=== PATIENT | female | born 1950 | race Caucasian/White ===

== ENCOUNTER 2016-05-04 12:48 | Emergency (ER) | payer MEDICARE, MEDICAID ==
--- NOTE | 2016-05-13 17:33 | ER ---
ADMIT: 05/04/2016 RM/LOC: ER [facility] MR#: [id number] 2620 [facility] [address] [place] [phone] KELSEY TOLEDO [address] [facility] [place], [place] [id number] Emergency Room Report SEX: F AGE: 66 : 1950 DATE: 05/04/2016 A 66-year-old female, comes down from [place] with complaints of worsening chronic back pain. She has pain all over. Of note, she quickly and incessantly demanded that something be given to her for pain immediately. See T-sheet for remainder of history and physical. Pertinent lab was a BUN of 76, sodium of 126, and white count of 12. I did discuss at length with them the need to follow up for these abnormal lab values. Her discharge diagnosis being uremia and exacerbation of chronic pain. She is given a prescription for [place] #18. Again, it was emphasized that was not the answer, that she needed further evaluation and workup for chronic pain and her abnormal electrolytes. Aj Yin MD/ tyron JOB #: [id number] CC: Maged Medina MD, Attending Physician Clement Toledo MD, Family Physician
[2016-05-18] MEDS ORDERED: NEURONTIN DPS300 MG PO (14:25)
[2016-05-18] MEDS ORDERED: MIRALAX PACKET17 GM PO (14:25)
[2016-05-18] MEDS ORDERED: CYMBALTA60 MG PO (14:25)
[2016-05-18] MEDS ORDERED: NEURONTIN DPS600 MG PO (14:25)
[2016-05-18] MEDS ORDERED: MS CONTIN DPS15 MG PO (14:25)
[2016-05-18] MEDS ORDERED: CATAPRES-DPS0.1 MG PO (14:26)
[2016-05-18] MEDS ORDERED: DUONEB DPS3 ML IH (14:26)
[2016-05-18] MEDS ORDERED: PROTONIX40 MG PO (14:26)
[2016-05-18] MEDS ORDERED: DULCOLAX-DPS10 MG PR (14:26)
[2016-05-18] MEDS ORDERED: DULERA 200/58.8 GM IH (14:26)
[2016-05-18] MEDS ORDERED: TYLENOL DPS325 MG PO (14:27)
[2016-05-18] MEDS ORDERED: MAALOX DPS30 ML PO (14:27)
[2016-05-18] MEDS ORDERED: SURFAK DPS240 MG PO (14:27)
[2016-05-18] MEDS ORDERED: HYDROCODON-ACE1 EAC6 PO (14:27)
[2016-05-18] MEDS ORDERED: SLOW-MAG64 MG PO (14:28)
[2016-08-27] MEDS ORDERED: SLOW-MAG71.5 MG PO (11:49)
[2016-08-27] MEDS ORDERED: BREO ELLIP1 PUFF/DOS IH (11:52)
[2016-08-27] MEDS ORDERED: ASPIRIN EC81 MG PO (11:53)
[2016-08-27] MEDS ORDERED: XANAX DPS0.25 MG PO (11:53)
[2016-08-27] MEDS ORDERED: DELTASONE DPS20 MG PO (11:55)
[2016-08-27] MEDS ORDERED: CARDIZEM CD180 MG PO (11:56)
[2016-08-27] MEDS ORDERED: CIPRO DPS500 MG PO (11:56)
== END 2016-05-04 16:55 | disposition home or self-care (01) ==
LOC: ER 12:48
DX: N19 Unspecified kidney failure (principal); G89.29 Other chronic pain; F17.210 Nicotine dependence, cigarettes, uncomplicated; Z79.899 Other long term (current) drug therapy

== ENCOUNTER → 2016-06-25 | Outpatient (CLI) | payer MEDICARE, MEDICAID ==
[~2016-06-25] MED LIST: ASPIRIN EC81 MG PO; BREO ELLIP1 PUFF/DOS IH; CARDIZEM CD180 MG PO; CATAPRES-DPS0.1 MG PO; CIPRO DPS500 MG PO; CYMBALTA60 MG PO; DELTASONE DPS20 MG PO; DULCOLAX-DPS10 MG PR; DULERA 200/58.8 GM IH; DUONEB DPS3 ML IH; HYDROCODON-ACE1 EAC6 PO; MAALOX DPS30 ML PO; MIRALAX PACKET17 GM PO; MS CONTIN DPS15 MG PO; NEURONTIN DPS300 MG PO; NEURONTIN DPS600 MG PO; PROTONIX40 MG PO; SLOW-MAG64 MG PO; SLOW-MAG71.5 MG PO; SURFAK DPS240 MG PO; TYLENOL DPS325 MG PO; XANAX DPS0.25 MG PO
== END | disposition home or self-care (01) ==
LOC: PTH.S 14:15
DX: J44.9 Chronic obstructive pulmonary disease, unspecified (principal); E46 Unspecified protein-calorie malnutrition

== ENCOUNTER 2016-08-20 05:46 | Inpatient (IN) | payer MEDICARE, MEDICAID ==
[~2016-08-20] VITALS: Ht 149.9 cm; Wt 47.0 kg
[~2016-08-20 05:46] MED LIST changes: -ASPIRIN EC81 MG PO; -BREO ELLIP1 PUFF/DOS IH; -CARDIZEM CD180 MG PO; -CIPRO DPS500 MG PO; -DELTASONE DPS20 MG PO; -SLOW-MAG71.5 MG PO; -XANAX DPS0.25 MG PO
--- NOTE | 2016-08-21 10:36 | CO ---
ADMIT: 08/20/2016 RM/LOC: 407 [facility] MR#: [id number] 2620 [facility] [address] [place] [phone] KELSEY TOLEDO [address] [facility] [place] [address] Consultation SEX: F AGE: 66 : 1950 DATE OF CONSULTATION: 08/20/2016 ATTENDING PHYSICIAN: Mayelin Norton CONSULTING PHYSICIAN: Ean Rdoriguez MD CHIEF COMPLAINT: Epigastric pain, UTI, pyelonephritis, and questionable gallbladder disease. HISTORY OF PRESENT ILLNESS: This is a pleasant 66-year-old female patient of Dr. Norton that was asked to see in surgical consultation. She is well known to me from when I took care of her back in early May with a perforated duodenal ulcer. She had a severe perforation with anterior and posterior ulcers and a repair with primary closure and Sky patch, which she ultimately recovered from. She was taking large amounts of ibuprofen at that time. She has avoided that now. She presented to the [facility] with complaints of significant abdominal pain, some nausea, no vomiting. She has been passing bowel movements. They had a CT scan there showed some question of gallbladder disease as well as found pyelonephritis on both her UA as well as CT scan. So, she was sent down here and Dr. Norton accepted her in transfer. She actually looks quite a bit better now than she did back in May and initially saw her. She is complaining of some abdominal pain. She is somewhat hungry. She complains of pain in her epigastric region. PAST MEDICAL HISTORY AND ILLNESS: Include: 1. COPD. 2. Reflux. 3. Chronic back pain. 4. History of perforated ulcer in the past. 5. History of excessive NSAID use. PREVIOUS SURGERIES: Appendectomy, hysterectomy, back surgery, and then also this recent laparotomy in May for closure of perforated duodenal ulcer. SOCIAL HISTORY: She is a smoker although is trying to cut back. Denies any alcohol use. FAMILY HISTORY: Noncontributory. REVIEW OF SYSTEMS: A 10-point review of systems is essentially negative with exception of her current epigastric pain, urinary tract symptoms with burning with urination and frequency. PHYSICAL EXAMINATION: GENERAL: She is alert. She is oriented, in no acute distress. VITAL SIGNS: Stable. She does state that her temperature was quite high in the 102 to 104 range when she left [place], but currently it is not that high. HEENT: Normal. ABDOMEN: Her abdomen is little distended. It is soft. She is tender in ADMIT: 08/20/2016 RM/LOC: 407 [facility] MR#: [id number] [address] [phone] KELSEY TOLEDO [address] [place] [id number] Consultation SEX: F AGE: 66 : 1950 epigastric region, but also kind of diffusely tender. Her incision from May is well healed. No hernia. No mass or organomegaly appreciated. EXTREMITIES: Warm and pink without edema. LABORATORY DATA: Her labs from today show white blood cell count of 21.6, hemoglobin of 10.1, and platelets of 190. Her lactic acid is 1.3. Her sodium is 133, potassium 3.1, chloride 100, CO2 24, BUN of 29, creatinine 1.4, glucose 136, albumin of 2.3, alkaline phosphatase is 142, just slightly elevated. AST, slightly elevated at 54 and ALT of 33. Lipase is low at 39. Total bilirubin is 0.5. CT scan of the abdomen and pelvis was reviewed. This is compared to the one she had in May. Obviously one in May, she had free air and free fluid. She does not have that now. The gallbladder essentially looks the same to me. There is probably some sludge in the gallbladder, but there is no obvious gallbladder wall thickening. Her ultrasound is currently pending. ASSESSMENT: 1. Epigastric pain. 2. Nausea. 3. Fevers. 4. Chills. 5. Urinary tract infection with probable pyelonephritis. PLAN: I do think it is obviously appropriate to treat her with antibiotics that Dr. Norton has already ordered. I am waiting on an ultrasound of her gallbladder. Even if this does show thickening of the gallbladder wall, I do not think I would recommend putting her through surgery here immediately. It is going to be difficult given her previous ulcer repair. We probably would want to place a cholecystostomy tube and let her recover from her UTI before even considering any surgical intervention, but hopefully the gallbladder looks okay on the ultrasound. We can just avoid putting her through any interventional altogether. The patient understands all this and agrees with this plan. Ean Rodriguez MD/ tyron JOB #: [id number] CC: Mayelin Norton, Attending Physician Zoran Daniel, Family Physician
--- NOTE | 2016-08-25 04:38 | ER ---
ADMIT: 08/20/2016 RM/LOC: 407 [facility] MR#: [id number] 2620 [facility] [address] [place] [phone] KELSEY TOLEDO [address] [place] [address] Emergency Room Report SEX: F AGE: 66 : 1950 DATE: 08/20/2016 CHIEF COMPLAINT: Abdominal pain. HISTORY OF PRESENT ILLNESS: The patient is a 66-year-old female, admitted to [facility] yesterday for pyelonephritis, started on Zosyn, spiked a fever, increased pain. CT without contrast this evening showed possible perinephric stranding on the right, but no obvious renal obstruction and dilated gallbladder with shadow sludge also noted. The patient was admitted here in May with perforated duodenum, oversewn by Dr. Rodriguez. The patient was given vancomycin in addition to her Zosyn in [place] before transfer. PAST MEDICAL HISTORY: ILLNESSES: Hypertension, peptic ulcer disease, CVA, O2- dependent COPD, GERD, chronic low back pain, xsaec-rh-emboymi kidney disease, depression. OPERATIONS: Appendectomy; hysterectomy; bilateral patellar relocations; laminectomy with hardware; perforated duodenum, oversewn. ALLERGIES: NONE. MEDICATIONS: Please see nursing MAR. SOCIAL HISTORY: Greater than 96-pzpi-cybu history of smoking, recently quit. No illicit drugs or alcohol. FAMILY HISTORY: Mother secondary to breast cancer. Father secondary to brain cancer. REVIEW OF SYSTEMS: A 12-point review of systems negative for all other systems, illnesses, or operations except as outlined above. PHYSICAL EXAMINATION: VITAL SIGNS: Temperature 98.4, pulse 117, respirations 20, BP 134/75, SaO2 of 94% on 2 L, weight 48 kilos. GENERAL: Nontoxic, non-diaphoretic without jaundice or icterus. HEENT: Normocephalic. No evidence of epistaxis, rhinorrhea, or otorrhea. NECK: Supple without lymphadenopathy or thyromegaly. CHEST: Clear. Breath sounds diminished without rales, rhonchi, or wheeze. HEART: Tachycardic, regular without murmur, gallop, or edema. ABDOMEN: Scaphoid. Tender epigastrium, right upper quadrant and right CVA. Bowel sounds hypoactive. BACK: Right CVA tenderness. EXTREMITIES: No evidence of Homans sign, synovitis, or dermatitis. NEURO: EOMI. PERRLA. No evidence of drift, dysarthria, or ataxia. Gait normal. MEDICAL DECISION MAKING: Reviewed CT from [facility]. Chest x-ray shows COPD changes. WBC 21.6, hemoglobin 10.1. Chemistries pending. Coags normal. UA; 103 wbc's, 40 rbc's, 3+ wbc's, 2+ blood. Cultures pending. EKG shows sinus ADMIT: 08/20/2016 RM/LOC: 407 [facility] MR#: [id number] [address] [place] [id number] KELSEY TOLEDO [id number] [place] [address] Emergency Room Report SEX: F AGE: 66 : 1950 tach with LVH, unchanged from 05/07/2016. Discussed findings with Dr. Norton, who agreed to admit and gave orders to nursing staff. DIAGNOSIS: Fever associated with pyelonephritis, cannot rule out acute-on- chronic cholecystitis. RECOMMENDATION: Admit inpatient Med/Surg for Dr. Norton. ADMISSION/DISCHARGE CONDITION: Stable. CODE STATUS: The patient is a DNR. Oli Hester MD/ tyron JOB #: [id number] CC: Mayelin Norton MD, Attending Physician Zoran Daniel MD, Family Physician MD Mayelin Avendano MD
[2016-08-27] MEDS ORDERED: SLOW-MAG71.5 MG PO (11:49)
[2016-08-27] MEDS ORDERED: BREO ELLIP1 PUFF/DOS IH (11:52)
[2016-08-27] MEDS ORDERED: ASPIRIN EC81 MG PO (11:53)
[2016-08-27] MEDS ORDERED: XANAX DPS0.25 MG PO (11:53)
[2016-08-27] MEDS ORDERED: DELTASONE DPS20 MG PO (11:55)
[2016-08-27] MEDS ORDERED: CARDIZEM CD180 MG PO (11:56)
[2016-08-27] MEDS ORDERED: CIPRO DPS500 MG PO (11:56)
--- NOTE | 2016-09-01 14:54 | HP ---
ADMIT: 08/20/2016 RM/LOC: 407 [facility] MR#: [id number] 2620 [facility] [address] [place] [phone] KELSEY TOLEDO [address] [place] [address] History and Physical SEX: F AGE: 66 : 1950 DATE OF SERVICE: CHIEF COMPLAINT: Pyelonephritis, fever, and concern for sepsis. HISTORY OF PRESENT ILLNESS: This is a 66-year-old lady, who lives at [place], [place] and was admitted to the [facility] on 08/18/2016, with fever and abdominal pain. She had pyuria and was diagnosed with pyelonephritis. She was started on antibiotics and IV fluids. Over the course of the first 24 hours, symptoms began to worsen with some altered mental status and fluctuating blood pressures. Therefore, she was transferred to [place] for evaluation and on admission to our facility, evaluated again for sepsis. She also has surgeon here in [place] who has taken care of her before for a perforated duodenal ulcer. There was concern that her pain and fevers might be related to gastrointestinal source as well. The patient was on vancomycin and Zosyn in [place] prior to her transfer here and she had blood cultures and urine cultures drawn there at that facility at [facility]. PAST MEDICAL HISTORY: Significant for hypertension; peptic ulcer disease; COPD, which is oxygen dependent; gastroesophageal reflux; chronic low back pain on chronic pain medicine. She also has chronic kidney disease, depression, and degenerative joint disease. PAST SURGICAL HISTORY: Include surgery for perforated duodenal ulcer which was oversewn by Dr. Rodriguez in May 2016. She is also status post appendectomy, hysterectomy, laminectomy, and has had bilateral knee surgeries for patella dislocation. ALLERGIES: NONE. MEDICATIONS: 1. Pantoprazole 40 mg twice daily. 2. Slow magnesium with calcium 70/117 one p.o. daily. 3. Gabapentin 900 mg t.i.d. 4. Cymbalta 60 mg daily. 5. Breo Ellipta 100/50 one puff daily. 6. DuoNeb q.4 hours as needed through the nebulizer. 7. Aspirin 81 mg daily. 8. Alprazolam 0.25 mg t.i.d. p.r.n. anxiety. 9. She also has Lortab 10/325 every 6 hours p.r.n. pain. 10.Clonidine 0.1 mg every 6 hours p.r.n. 11.She was transferred here on Zosyn IV and also had a dose of vancomycin prior to her transfer. FAMILY HISTORY: Significant for brain tumor in her father and mother of breast cancer. SOCIAL HISTORY: She is a smoker with greater than 50 pack-year history but ADMIT: 08/20/2016 RM/LOC: 407 [facility] MR#: [id number] [address] [phone] KELSEY TOLEDO [address] [place] [address] History and Physical SEX: F AGE: 66 : 1950 just recently quit. Denies alcohol use. Denies illicit drug use. She lives home alone with her boyfriend. She also has family in the area and they accompanied her to the hospital. REVIEW OF SYSTEMS: GENERAL: She feels very tired and weak. She had fever spiked prior to her transfer here, reportedly was over 102. She denies headache or vision changes. CARDIOPULMONARY: Positive for chronic shortness of breath, chronic cough, and she wears oxygen at all times for her COPD. She denies any new cough. No chest pain. GASTROINTESTINAL: Positive for decreased appetite. She has some pain across the upper abdomen, worse on the right side. Also pain radiating into the flanks. MUSCULOSKELETAL: Positive for back pain that is chronic. Denies any new weakness. The rest of the review is benign. PHYSICAL EXAM: VITAL SIGNS: Her blood pressure stable in the 130s systolic. She is alert and oriented. O2 was 94% on 3 L oxygen. Temp was up to 104 at the highest and down to 99 when I came to see her a couple hours after admission. GENERAL: This is a very thin, petite lady, lying in the bed with a little bit respiratory distress, mainly prolonged expiratory phase with breathing. She has O2 on per nasal cannula. HEENT: Mucous membranes are moist. NECK: Supple. There is no jugular venous distention. LUNGS: Very quiet with very hard to hear breath sounds and she has expiratory wheeze bilaterally. ABDOMEN: Belly is slightly distended. Tender throughout with normal bowel sounds. EXTREMITIES: Have no edema. Capillary refill is about a second. LABORATORY DATA: The transfer information includes gram-negative rods in the urine and blood. Electrolytes drawn in our emergency room include sodium of 133, potassium 3.1, CO2 was 24, BUN 29, creatinine 1.4, phosphorus 1.8, and albumin 2.3. AST is 54 and ALT 33. Cardiac enzymes were drawn in our emergency room and were normal. White count is 21.6, hemoglobin 10.1, hematocrit 30, and platelet count 190. She has shift in the white cell count with majority of neutrophils. Urine with 2+ protein, 2+ blood with 3+ leukocytes, clumps of white cells, with 103 white cells per high-power field and also a few bacteria. ASSESSMENT: 1. Pyelonephritis. 2. Abdominal pain with previous duodenal ulcer perforation. 3. Hypertension. 4. Chronic obstructive pulmonary disease, which is oxygen dependent. 5. Chronic back pain on chronic pain medication. PLAN: She is admitted. I will continue with IV Zosyn and vancomycin. We are ADMIT: 08/20/2016 RM/LOC: 407 [facility] MR#: [id number] [address] [phone] KELSEY TOLEDO [address] [place] [address] History and Physical SEX: F AGE: 66 : 1950 also treating her with steroids since she is chronically on oxygen for COPD and has had a little increased respiratory distress. Chest x-ray does not show pneumonia, however. I will continue the Cymbalta and her gabapentin as well as her Protonix. Hold off on pharmacologic VTE prophylaxis until Surgery sees her to assure they do not feel any procedures are needed for the stomach pain. Were going to have [facility] send us the blood and urine cultures as soon as those are available there. If necessary, I will change antibiotic treatment based on the cultures. Patient requests DNR code status and that is on her previous records as well, so we will continue that per her wishes. Mayelin Norton MD/ tyron JOB #: [id number] CC: Mayelin Norton, Attending Physician Zoran Daniel, Family Physician
--- NOTE | 2016-09-05 07:38 | DS ---
ADMIT: 08/20/2016 RM/LOC: 407 [facility] MR#: [id number] 2620 [facility] [address] [place] [phone] KELSEY TOLEDO [address] [place] [address] General Discharge Summary SEX: F AGE: 66 : 1950 ADMISSION DATE: 08/20/2016 DISCHARGE DATE: 08/26/2016 FINAL DIAGNOSES: 1. Pyelonephritis. 2. Sepsis secondary to pyelonephritis. 3. Chronic kidney disease stage III. 4. Chronic low back pain. 5. Chronic obstructive pulmonary disease. 6. Chronic anxiety. 7. Hypertension, chronic. HOSPITAL COURSE: The patient was admitted after she was transferred from [place] to be evaluated in our emergency room. She had fever and pyelonephritis. There was a verbal report that her CAT scan showed possible abnormality of the gallbladder. She was having persistent fever despite antibiotics and with concern for decompensation at the outside hospital, so she was transferred to our facility. On arrival, she had a fever of 104. She was alert, oriented. Oxygenation was 94% on her usual 3 L of oxygen. She was started on vancomycin and Zosyn and had actually been on antibiotics at the outside facility as well. I also gave her Solu-Medrol, Protonix, and replaced electrolytes. I consulted Surgery because the outside facility was concerned about gallbladder abnormality. I do note that liver enzymes were normal and she has a past history of duodenal perforation in May of 2016. She also has chronic kidney disease, and we monitored kidney function closely. Dr. Rodriguez kindly saw her and recommended ultrasound. There was no evidence of any peptic ulcer disease, especially no perforation. Gallbladder was fine on the ultrasound. On 08/21, she was alert, little less sore. White count was 24.2 with hemoglobin of 10.5, and her creatinine was down to 1.0. We started diet and switched pantoprazole over to oral. I did receive outside records with cultures and that showed positive blood cultures for E. coli. It was sensitive to Zosyn. I stopped her vancomycin on 08/22/2016. I also began weaning down her Solu-Medrol and then switched over to oral prednisone. We had PT and OT see her as well. Her long-term goal was to get back home. She was weak and also had some fluctuations in blood pressures over the next couple of days. Her pressures initially had been low, so I resumed her home antihypertensives on 08/23/2016. We increased dose of her Cardizem on 08/24 because of persistently elevated blood pressures. The patient developed some diarrhea on the and C. difficile studies were done but was negative. On 08/26, she had hypokalemia that potassium was replaced. Later on that day, potassium was normal. She had no further diarrhea, was eating and drinking ADMIT: 08/20/2016 RM/LOC: 407 [facility] MR#: [id number] [address] [phone] KELSEY TOLEDO [id number] [place] [address] General Discharge Summary SEX: F AGE: 66 : 1950 well. She was dismissed home on 08/26/2016. On dismissal, medications are: 1. Aspirin 81 mg daily. 2. Cymbalta 60 mg daily. 3. Deltasone on a tapering dose of 30 mg daily on 08/25 and 08/26, and then 20 mg daily on 08/27 and 08/28, and then 10 mg daily for 5 more days, then stop. She can also resume her own Slow-Mag/calcium when she gets home. 4. Neurontin 900 mg t.i.d. 5. Protonix 40 mg b.i.d. 6. Cardizem 180 mg daily. 7. Breo 100/25 two puffs b.i.d. (she was on Dulera in the hospital due to our formulary). 8. DuoNeb b.i.d. 9. She also has p.r.n. Catapres 0.1 mg tab for blood pressures systolic over 170 and p.r.n. hydrocodone 10/325 every 6 hours which she has at home. 10.Xanax 0.25 mg t.i.d. p.r.n., which she has at home. 11.Finally, I will have her finish out Cipro 500 mg b.i.d. through 09/02/2016 to give her a total of 14 days antibiotic for her positive blood cultures and pyelonephritis. Code status during the hospital stay per her wishes was DNR/DNI and she will continue that as an outpatient. Her diet is as tolerated at dismissal and she should have followup with Dr. Daniel in 7-10 days. She needs repeat BMP, CBC, and complete UA at her followup visit. No vaccines were given during the hospital stay. Mayelin Norton MD/ tyron JOB #: [id number] CC: Mayelin Norton MD, Attending Physician Zoran Daniel MD, Family Physician Zoran Daniel MD
== END 2016-08-26 18:44 | disposition home or self-care (01) | DRG 872 ==
LOC: ER 05:46 → 4PCU 06:59
PROVIDERS: ADMIT Family Medicine
DX: A41.51 Sepsis due to Escherichia coli [E. coli] (principal); Z99.81 Dependence on supplemental oxygen; N18.3 Chronic kidney disease, stage 3 (moderate); N12 Tubulo-interstitial nephritis, not specified as acute or chronic; J44.9 Chronic obstructive pulmonary disease, unspecified; K21.9 Gastro-esophageal reflux disease without esophagitis; E87.6 Hypokalemia; F41.9 Anxiety disorder, unspecified; M54.5 Low back pain; D63.1 Anemia in chronic kidney disease; M17.9 Osteoarthritis of knee, unspecified; G89.29 Other chronic pain; F32.9 Major depressive disorder, single episode, unspecified; I12.9 Hypertensive chronic kidney disease with stage 1 through stage 4 chronic kidney disease, or unspecified chronic kidney disease; Z87.11 Personal history of peptic ulcer disease; Z86.73 Personal history of transient ischemic attack (TIA), and cerebral infarction without residual deficits; Z87.891 Personal history of nicotine dependence; Z66 Do not resuscitate